=== PATIENT | male | born 1970 | race Caucasian/White ===

== ENCOUNTER → 2017-03-16 | Outpatient (REF) | payer BC ==
[~2017-03-16] MED LIST: /ADVA50050 IN; /WARF5TA OR; ACET65TA OR; ALBUTEROL INH; CLARITIN OR; CRES40TA OR; CRES40TA PO; LEVA500T OR; LISI20TA5 OR; LISI20TA5 PO; MULTIVIT PO; NICO14DI3 TD; NICOTINE PATCH TD; PREDNISONE OR; SYMBYAX OR; XOPEAER INH; ZEST20TA4 OR; [UNRECOGNIZED DRUG - OTHER]; love; lovenox SC
== END ==
LOC: M LAB REF 13:26
PROVIDERS: ATTEND Nurse Practitioner Adult Health
DX: R79.89 Other specified abnormal findings of blood chemistry (principal)

== ENCOUNTER 2019-09-11 09:21 | Emergency (ER) | payer BC ==
[~2019-09-11] VITALS: Ht 185.4 cm; Wt 125.9 kg
[~2019-09-11 09:21] MED LIST changes: -/ADVA50050 IN; -/WARF5TA OR; +ADVA1AER2 IN; +COUM1TAB17 OR
[2019-09-11] MEDS ORDERED: LISI-538 (09:26)
[2019-09-11] MEDS ORDERED: OMEP-218 (09:26)
[2019-09-11] MEDS ORDERED: PIOG1TAB36 (09:26)
[2019-09-11] MEDS ORDERED: METF500T13 (09:26)
[2019-09-11] MEDS ORDERED: ROSU40TA4 (09:26)
[2019-09-11] MEDS ORDERED: [UNRECOGNIZED DRUG - CODE] (09:26)
[2019-09-11] MEDS ORDERED: KETOROLAC 30 MG/ML VIAL (J1885) IV ONE (10:15)
[2019-09-11] MEDS ORDERED: CYCLOBENZAPRINE 10 MG TAB PO ONE (10:15)
[2019-09-11] MEDS ORDERED: LORazepam 2 MG/ML VIAL (J2060) IV STA (10:20)
--- NOTE | 2019-09-11 12:14 | REPVR ---
PROCEDURE INFORMATION: Exam: MR Lumbar Spine Without Contrast. Exam date and time: 09/11/2019 11:18 AM Age: 48 years old Clinical indication: Pain; Lumbago with sciatica; Bilateral; Prior surgery; Surgery date: 6+ months; Additional info: Low back pain, urinary retention TECHNIQUE: Imaging protocol: Multiplanar magnetic resonance images of the lumbar spine without intravenous contrast. COMPARISON: No relevant prior studies available. FINDINGS: Vertebrae: Mild Modic 1 changes (subchondral vertebral end plate cancellous bone edema) at posterior L3-L4 and right L5-S1. Mild Modic 2 changes (subchondral vertebral end plate cancellous bone fatty marrow conversion) at L3-L4, L4-L5 and L5-S1. Spinal cord: The conus tip is at the lower T12 level. Normal signal. No cord compression. L1-L2: No significant disc disease. No significant spinal canal stenosis. No neural foraminal stenosis. L2-L3: No significant disc disease. No significant spinal canal stenosis. No neural foraminal stenosis. L3-L4: Moderate disc desiccation, with partial loss of disc space height (Pfirrmann 4). Mild RIGHT primary facet osteoarthritis. Mild RIGHT neural foraminal narrowing. L4-L5: Severe disc desiccation, with severe loss of disc space height (Pfirrmann 5). Mild RIGHT primary facet osteoarthritis. Mild bilateral neural foraminal narrowing. L5-S1: Moderate disc desiccation, with partial loss of disc space height posteriorly (Pfirrmann 4), with posterior annular fissure. Broad-based large central-right central disc protrusion measuring 8.1 mm AP dimension, causing moderate left and severe right lateral recess stenosis, with posterior displacement of the bilateral descending S1 roots, greater on the right. Mild RIGHT primary facet osteoarthritis. Mild RIGHT neural foraminal narrowing. Soft tissues: Unremarkable. IMPRESSION: Large L5-S1 disc protrusion, with bilateral S1 root impingement. Clinical correlation with the patient's specific symptomatology is recommended. Neural foraminal stenoses as above. Please see additional findings as above. Electronically signed by: Dung Santana On 09/11/2019 12:14:18 PM
[2019-09-11] MEDS ORDERED: BACL10TA2 PO (12:48)
[2019-09-11 13:01] VITALS: BP 134/73
--- NOTE | 2019-09-11 19:36 | ED PDOC ---
Post-Departure Follow-Up lencho muse faxed formal report of mri ls spine for fu Miah Thompson MD Sep 11, 2019 19:36
== END 2019-09-11 13:03 | disposition home or self-care (01) ==
LOC: M ED 09:21
DX: S39.012A Strain of muscle, fascia and tendon of lower back, initial encounter (principal); M51.27 Other intervertebral disc displacement, lumbosacral region; M48.061 Spinal stenosis, lumbar region without neurogenic claudication; Y92.89 Other specified places as the place of occurrence of the external cause; Y93.9 Activity, unspecified; Y99.9 Unspecified external cause status
CPT/HCPCS: 72148; 96374; 96375; 99284; J1885; J2060

== ENCOUNTER → 2020-11-07 | Outpatient (REF) | payer BC ==
[~2020-11-07] MED LIST changes: +BACL10TA2 PO; +LISI20TA33; +METF500T13; +OMEP-218; +PIOG1TAB36; +ROSU40TA4; +[UNRECOGNIZED DRUG - CODE]
[2020-11-07 13:46] LABS: BASO % 0.7 % (0.0-1.0); EOS # 0.1 10^3/uL (0.0-0.5); EOS % 1.3 % (0.0-3.0); HEMATOCRIT 42.2 % (42.0-52.0); HEMOGLOBIN 13.7 g/dl (13.5-17.5); LYMPH # 1.4 10^3/uL (1.5-5.0); LYMPH % 31.2 % (24.0-44.0); MEAN CORPUSCULAR HEMOGLOBIN 33.3 pg (27.0-33.0); MEAN CORPUSCULAR HGB CONC 32.5 g/dl (32.0-36.5); MEAN CORPUSCULAR VOLUME 102.4 fl (80.0-96.0); MONO # 0.4 10^3/uL (0.0-0.8); MONO % 9.6 % (2.0-8.0); NEUTROPHILS # 2.6 10^3/uL (1.5-8.5); NEUTROPHILS % 56.8 % (36.0-66.0); PLATELET COUNT, AUTOMATED 254 10^3/uL (150-450); RED BLOOD COUNT 4.12 10^6/uL (4.30-6.10); WHITE BLOOD COUNT 4.6 10^3/uL (4.0-10.0)
[2020-11-07 14:27] LABS: ALBUMIN 4.8 GM/DL (3.2-5.2); ALT/SGPT 60 U/L (12-78); BILIRUBIN,TOTAL 0.4 MG/DL (0.2-1.0); BLOOD UREA NITROGEN 16 MG/DL (7-18); CALCIUM LEVEL 9.6 MG/DL (8.5-10.1); CARBON DIOXIDE LEVEL 28 MEQ/L (21-32); CHLORIDE LEVEL 104 MEQ/L (98-107); CHOLESTEROL LEVEL 155 MG/DL (<200); CHOLESTEROL RISK RATIO 2.672 (<5); CREATININE FOR GFR 1.01 MG/DL (0.70-1.30); GLOMERULAR FILTRATION RATE > 60.0 (>56); GLUCOSE, FASTING 154 MG/DL (70-100); HDL CHOLESTEROL 58 MG/DL (>40); LDL CHOLESTEROL 68 MG/DL (<100); NON-HDL-C 97 MG/DL; POTASSIUM SERUM 4.6 MEQ/L (3.5-5.1); SODIUM LEVEL 137 MEQ/L (136-145); TOTAL PROTEIN 8.3 GM/DL (6.4-8.2); TRIGLYCERIDES LEVEL 143 MG/DL (<150)
[2020-11-07 14:42] LABS: HEMOGLOBIN A1c 6.7 %
== END ==
LOC: M LABDRWAD 12:36
PROVIDERS: ATTEND Nurse Practitioner Adult Health
DX: E78.00 Pure hypercholesterolemia, unspecified (principal); I10 Essential (primary) hypertension; E11.9 Type 2 diabetes mellitus without complications

== ENCOUNTER → 2020-11-08 | Outpatient (REF) | payer BC ==
[2020-11-08 13:52] LABS: MAU/CREAT RATIO 9.3 MCG/MG (0.0-30.0)
== END ==
LOC: M LAB REF 12:27
PROVIDERS: ATTEND Nurse Practitioner Adult Health
DX: E78.00 Pure hypercholesterolemia, unspecified (principal); I10 Essential (primary) hypertension; E11.9 Type 2 diabetes mellitus without complications

== ENCOUNTER → 2021-02-13 | Outpatient (REF) | payer BC ==
[2021-02-13 18:15] LABS: HEPATITIS A ANTIBODY IGM NEGATIVE (NEGATIVE); HEPATITIS B CORE ANTIBODY IGM NEGATIVE (NEGATIVE); HEPATITIS B SURFACE ANTIGEN NEGATIVE (NEGATIVE); HEPATITIS C VIRUS ABY INDEX 0.1 INDEX (<0.8); VITAMIN B12 LEVEL 567 PG/ML (247-911)
== END ==
LOC: M LAB REF 16:23
PROVIDERS: ATTEND Nurse Practitioner Adult Health
DX: R74.8 Abnormal levels of other serum enzymes (principal); D75.89 Other specified diseases of blood and blood-forming organs

== ENCOUNTER → 2021-03-13 | Outpatient (CLI) | payer BC ==
--- NOTE | 2021-03-13 08:49 | REP ---
INDICATION: ELEVATED LFT'S. COMPARISON: 02/10/2007 FINDINGS: The gallbladder shows normal size. There is no evidence of gallstone. The wall thickness measures 2 mm and within normal limits. The bile ducts are not dilated. The common bile duct measures 4 mm. This fatty infiltration throughout the liver. There is no liver mass. There is no significant change in the appearance of the liver compared to the previous study. The intrahepatic bile ducts are not dilated. The visualized portions of the pancreas unremarkable. The right kidney measures 13.6 cm in length shows normal configuration. There is no evidence of hydronephrosis, mass or calculus. IMPRESSION: Fatty liver. Otherwise unremarkable right upper quadrant ultrasound. <Electronically signed by Ramos Powell > 03/13/21 [id number]
== END ==
LOC: M RAD 07:55
PROVIDERS: ATTEND Nurse Practitioner Adult Health
DX: K76.0 Fatty (change of) liver, not elsewhere classified (principal); R94.5 Abnormal results of liver function studies

== ENCOUNTER → 2025-06-19 | Outpatient (CLI) | payer OTHER ==
[~2025-06-19] MED LIST changes: +ISOVUE-M 300 61% 15 ML VIAL IV ONE; +OMEP-173; -OMEP-218; -ROSU40TA4; +ROSU40TA81
[2025-06-19 14:45] VITALS: BP 130/64; O2SAT 97
== END ==
LOC: M IRPRO 11:57
PROVIDERS: ATTEND Nurse Practitioner Adult Health
DX: M54.50 Low back pain, unspecified (principal)
CPT/HCPCS: 62284; 72131; Q9967